=== PATIENT | male | born 1990 | race Caucasian/White ===

== ENCOUNTER 2017-01-29 18:17 | Emergency (ER) | payer OTHER ==
[2017-01-29] MEDS ORDERED: HYDROCODONE/APAP 7.5/325MG TABLET PO ONE (18:42)
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
[2017-01-29] MEDS ORDERED: Diph,Pert(Acell),Tet Vac 0.5 ML SYR IM ONE (20:42)
[2017-01-29] MEDS ORDERED: AMOXICILLIN/POTASSIUM CLAV 875MG/125MG TABLET PO ONE (20:42)
== END 2017-01-29 21:02 | disposition home or self-care (01) ==
LOC: ER 18:17
DX: S01.522A Laceration with foreign body of oral cavity, initial encounter (principal); S01.01XA Laceration without foreign body of scalp, initial encounter; S02.5XXA Fracture of tooth (traumatic), initial encounter for closed fracture; M54.2 Cervicalgia; Y04.0XXA Assault by unarmed brawl or fight, initial encounter; Y92.009 Unspecified place in unspecified non-institutional (private) residence as the place of occurrence of the external cause
CPT/HCPCS: 12001; 40650; 70450; 70486; 72125; 90715; 96372; 99284

== ENCOUNTER 2017-02-11 16:52 | Emergency (ER) | payer OTHER ==
--- NOTE | 2017-02-11 17:28 | Emergency Department Record ---
History of Present Illness - General Chief Complaint: Suture removal Stated Complaint: GURDEEP/STITCHES REMOVED Time Seen by Provider: 02/11/17 17:27 Source: Patient Mode of arrival: Ambulatory Limitations: No limitations - History of Present Illness Initial Comments: The patient is here for suture and staple removal. He denies any problems. Complaint: Suture/staple removal Onset/Timin -: Week(s) Initial Visit For: Laceration Returns Today for: Staple/stitch removal Symptoms Since Prior Visit: No new symptoms - Related Data Home Medications Medication Instructions Recorded Confirmed Last Taken No Home Med [NO HOME MEDS] 02/11/17 02/11/17 Unknown Allergies Allergy/AdvReac Type Severity Reaction Status Date / Time No Known Drug Allergies Allergy Verified 02/11/17 17:01 Travel Screening - Travel/Exposure Within Last 30 Days Have you traveled within the last 30 days?: No - Travel/Exposure Within Last Year Have you traveled outside the [place] in the last year?: No - Additonal Travel Details Have you been exposed to anyone with a communicable illness?: No - Travel Symptoms Symptom Screening: None Past Medical History - SOCIAL HISTORY Smoking Status: Current every day smoker Alcohol Use: None Drug Use: None - RESPIRATORY Hx Respiratory Disorders: No - CARDIOVASCULAR Hx Cardio Disorders: No - NEURO Hx Neuro Disorders: No - GI Hx GI Disorders: No - Hx Genitourinary Disorders: No - ENDOCRINE Hx Endocrine Disorders: No - MUSCULOSKELETAL Hx Musculoskeletal Disorders: No - PSYCH Hx Psych Problems: No - HEMATOLOGY/ONCOLOGY Hx Hematology/Oncology Disorders: No Family Medical History Any Significant Family History?: No Physical Exam - General General Appearance: Alert, Oriented x3, Cooperative, No acute distress - Head Head exam: Normocephalic (The patient had 3 gurdeep removed from his scalp and 2 sutures removed from his upper lip. There were no complications.) Course Vital Signs 02/11/17 16:55 Temperature 97.3 F L Pulse Rate 63 Respiratory 18 Rate Blood Pressure 122/73 Pulse Ox 99 Disposition Disposition: Discharge Clinical Impression: Visit for suture removal Disposition: Home, Self-Care Instructions: Suture Removal (ED) Additional Instructions: Please return to the ER for any problems. Forms: Patient Portal Access Time of Disposition: 17:32
== END 2017-02-11 17:42 | disposition home or self-care (01) ==
LOC: ER 16:52
DX: Z48.02 Encounter for removal of sutures (principal)